=== PATIENT | female | born 2005 | race Caucasian/White ===

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

== ENCOUNTER 2024-08-29 14:16 | Emergency (ER) | payer SELFPAY | END 2024-08-29 16:06 | disposition home or self-care (01) | LOC: JD.ED 14:16 | DX: S61.011A Laceration without foreign body of right thumb without damage to nail, initial encounter (principal); Z88.0 Allergy status to penicillin; W26.0XXA Contact with knife, initial encounter | CPT/HCPCS: 99282; 99283 ==

== ENCOUNTER 2025-06-06 13:47 | Emergency (ER) | payer OTHER ==
[2025-06-06] MEDS: Diphtheria,Pertussis(Acell),Tetanus Vaccine 0.5 ML Syringe IM ONE (15:00)
== END 2025-06-06 15:05 | disposition home or self-care (01) ==
LOC: JD.ED 13:47
DX: S61.052A Open bite of left thumb without damage to nail, initial encounter (principal); S61.254A Open bite of right ring finger without damage to nail, initial encounter; S61.256A Open bite of right little finger without damage to nail, initial encounter; Z88.0 Allergy status to penicillin; W54.0XXA Bitten by dog, initial encounter
CPT/HCPCS: 90471; 90715; 99283; A9270